=== PATIENT | female | born 1990 | race Caucasian/White ===

== ENCOUNTER 2016-04-01 07:35 | Emergency (ER) | payer SELFPAY ==
[~2016-04-01] VITALS: Ht 172.7 cm; Wt 63.5 kg
[2016-04-01 08:17] VITALS: BP 129/72
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
[2016-04-01 08:59] LABS: NEG OBC UR NEG; POS OBC UR POS
== END 2016-04-01 09:07 | disposition home or self-care (01) ==
LOC: ER 07:35
DX: S20.212A Contusion of left front wall of thorax, initial encounter (principal); Z98.51 Tubal ligation status; Z88.2 Allergy status to sulfonamides; X58.XXXA Exposure to other specified factors, initial encounter; Y93.89 Activity, other specified; Y92.89 Other specified places as the place of occurrence of the external cause; Y99.8 Other external cause status
CPT/HCPCS: 71020; 81025; 99284-25